=== PATIENT | female | born 2000 | race Two or more races ===

== ENCOUNTER 2018-02-26 20:18 | Emergency (ER) | payer SELFPAY ==
[2018-02-26 20:35] LABS: URINE HCG POC HCG NEGATIVE (Negative)
[2018-02-26] MEDS: IVERMECTIN 3 MG TABLET PO (21:04)
== END 2018-02-26 21:34 | disposition home or self-care (01) ==
LOC: ER 20:18
DX: B83.9 Helminthiasis, unspecified (principal); R11.0 Nausea
CPT/HCPCS: 81025; 99282